=== PATIENT | male | born 1950 ===

== ENCOUNTER 2023-03-27 12:18 | Emergency (ER) | payer MEDICARE, OTHER ==
[2023-03-27 14:27] LABS: EOSINOPHILS ABSOLUTE AUTO 0.02 K/mm3 (0.04-0.54); EOSINOPHILS PERCENT AUTO 0.3 (0.8-7.0); HEMATOCRIT 50.9 % (40.1-51.0); HEMOGLOBIN 16.6 gm/dl (13.7-17.5); IMMATURE GRAN ABSOLUTE AUTO 0.01 K/mm3 (0.00-0.10); IMMATURE GRAN PERCENT AUTO 0.1 % (<=1.0); LYMPHOCYTES ABSOLUTE AUTO 0.68 K/mm3 (1.32-3.57); LYMPHOCYTES PERCENT AUTO 9.3 % (21.8-53.1); MEAN CORPUSCULAR HEMOGLOBIN 28.7 pg (25.7-32.2); MEAN CORPUSCULAR HGB CONC 32.6 g/dl (32.2-35.5); MEAN CORPUSCULAR VOLUME 87.9 fl (79.0-92.2); MEAN PLATELET VOLUME 11.5 fl (9.4-12.3); MONOCYTES ABSOLUTE AUTO 0.32 K/mm3 (0.30-0.82); MONOCYTES PERCENT AUTO 4.4 % (5.3-12.2); NEUTROPHILS ABSOLUTE AUTO 6.31 K/mm3 (1.78-5.38); NEUTROPHILS PERCENT AUTO 85.9 % (34.0-67.9); PLATELET COUNT,PLT 203 K/mm3 (163-337); RED BLOOD CELL COUNT 5.79 M/mm3 (4.63-6.08); WHITE BLOOD CELL COUNT,WBC 7.34 K/mm3 (4.23-9.07)
[2023-03-27 14:45] LABS: INR 1.04; PROTHROMBIN TIME 11.1 SECONDS (9.7-12.0)
[2023-03-27 14:47] LABS: PTT,PARTIAL THROMBOPLSTIN TIME 29.1 SECONDS (21.7-31.4)
[2023-03-27 15:04] LABS: A/G RATIO 0.9 (1-2); ALANINE AMINOTRANSFERASE,ALT 16 U/L (16-63); ALBUMIN 3.7 g/dl (3.4-5.0); ALKALINE PHOSPHATASE 82 U/L (46-116); ANION GAP 12.3 (5-15); ASPARTATE AMNIOTRANSFERASE,AST 16 U/L (15-37); BILIRUBIN TOTAL 0.6 mg/dL (0.2-1.0); BLOOD UREA NITROGEN,BUN 18 mg/dL (7-18); BUN/CREATININE RATIO 13.8 (14-18); C-REACTIVE PROTEIN <0.2 mg/dL (<1.0); CARBON DIOXIDE,CO2 28 mEq/L (21-32); CHLORIDE,CL 110 mEq/L (98-107); CREATININE 1.3 mg/dL (0.7-1.3); EST CRCL DRUG DOSING (CG) 55.51 mL/min; ESTIMATED GFR 59 mL/min (>60); GLUCOSE RANDOM 104 mg/dL (70-99); MAGNESIUM 1.9 mg/dL (1.8-2.4); POTASSIUM,K 4.3 mEq/L (3.5-5.1); PROTEIN TOTAL,TP 7.8 g/dl (6.4-8.2); SODIUM,NA 146 mEq/L (136-145); TROPONIN I HIGH SENSITIVITY 5 pg/mL (<=76)
[2023-03-27 15:25] LABS: TSH 1.327 uIU/mL (0.358-3.74)
[2023-03-27 18:50] VITALS: BP 144/87; PULSE 88
== END 2023-03-27 18:47 | disposition home or self-care (01) ==
LOC: JD.ED 12:18
DX: H55.00 Unspecified nystagmus (principal); R11.2 Nausea with vomiting, unspecified; Z91.048 Other nonmedicinal substance allergy status
CPT/HCPCS: 36415; 70544; 70544-26; 70551; 70551-26; 80053; 83735; 84443; 84484; 85025; 85379; 85610; 85730; 86140; 93005; 99284